=== PATIENT | female | born 1940 | race Caucasian/White ===

== ENCOUNTER → 2016-08-02 | Outpatient (CLI) | payer MEDICARE, OTHER | END | disposition home or self-care (01) | LOC: GMAB 10:11 | PROVIDERS: ATTEND Family Medicine | DX: E03.9 Hypothyroidism, unspecified (principal) ==

== ENCOUNTER → 2016-10-26 | Outpatient (CLI) | payer MEDICARE, OTHER ==
--- NOTE | 2016-10-26 10:22 | RAD ---
EXAM DESCRIPTION: Fingers,Right CLINICAL HISTORY: 76 years Female, PAIN IN RIGHT 4TH DIGIT COMPARISON: None. FINDINGS: Degenerative changes involving the DIP joint of the fourth digit is present with normal bony alignment. Extensive calcific densities overlying the hand between the third and fourth digits at the MCP joints and more proximally and do not clearly represent vascular calcification and suggestive of some form of soft tissue dystrophic calcification. IMPRESSION: Degenerative changes of the DIP joint and dystrophic calcifications over the mid hand of uncertain significance. Electronically signed by: Lan Mcnair MD 10/26/2016 10:21 AM CDT
--- NOTE | 2016-10-26 10:24 | RAD ---
EXAM DESCRIPTION: Wrist,Right 3 Views CLINICAL HISTORY: 76 years, Female, PAIN IN RIGHT HAND COMPARISON: None TECHNIQUE: AP/ lateral/ oblique views of the right wrist. FINDINGS: Right wrist study shows no fracture or dislocation. The carpal bones are normally aligned and mildly osteopenic without fracture or dislocation. Extensive vascular calcification is present and may account for what was described as dystrophic calcifications within the mid hand. No additional abnormalities noted. IMPRESSION: 1. Extensive vascular calcifications throughout the forearm and wrist and likely accounting for the calcification within the hand. 2. Osteopenia and mild degenerative changes of the wrist without fracture. Electronically signed by: Lan Mcnair MD 10/26/2016 10:24 AM CDT
== END | disposition home or self-care (01) ==
LOC: RAD 07:41
PROVIDERS: ATTEND Orthopaedic Surgery
DX: M79.641 Pain in right hand (principal); M79.644 Pain in right finger(s)

== ENCOUNTER → 2016-11-28 | Outpatient (CLI) | payer MEDICARE, OTHER | END | disposition home or self-care (01) | LOC: GMAB 10:28 | PROVIDERS: ATTEND Family Medicine | DX: E03.9 Hypothyroidism, unspecified (principal); N39.0 Urinary tract infection, site not specified ==

== ENCOUNTER → 2016-11-29 | Outpatient (CLI) | payer MEDICARE, OTHER | LOC: RESP 15:56 | PROVIDERS: ATTEND Orthopaedic Surgery | DX: Z01.818 Encounter for other preprocedural examination (principal) ==

== ENCOUNTER 2016-12-14 05:47 | Day surgery (SDC) | payer MEDICARE, OTHER ==
--- NOTE | 2016-12-12 08:45 | HP ---
CHIEF COMPLAINT: Right hand pain and numbness. HISTORY OF PRESENT ILLNESS: Ms. Griffin is a 76-year-old female with a history of clicking and locking at the third and fourth digits with some numbness in the hand. The numbness has been waking her up at night. She has had pain in the palmar aspect of the hand and both these issues have been going on for years. She has attempted bracing, however, it has failed to give her relief. She is requesting surgical intervention. After discussing the risks, benefits and alternatives to that, the patient has given informed consent. PAST SURGICAL HISTORY: 1. Hysterectomy. 2. Cholecystectomy. 3. Trigger finger release. MEDICATIONS: 1. Prilosec. 2. Zocor. 3. Metformin. 4. Zoloft. 5. Glucotrol. 6. Lopressor. 7. Altace. ALLERGIES: NO KNOWN DRUG ALLERGIES. CODE STATUS: Full code. IMMUNIZATIONS: Up to date. SOCIAL HISTORY: The patient does not drink, smoke or use any illicit drugs. FAMILY HISTORY: None pertinent to today's complaint. REVIEW OF SYSTEMS: Negative except as indicated in the History of Present Illness. PHYSICAL EXAMINATION: VITAL SIGNS: Blood pressure 114/57. Pulse 75. Height 5'6". Weight 210. MENTAL STATUS: The patient is awake, alert, and is able to give a good history and participate in the physical. The patient is oriented to person, place and time. SKIN: Normal tone and turgor. MUSCULOSKELETAL: The right hand shows some thenar atrophy and she has positive Phalen's and positive Tinel's. She has positive carpal compression test as well. She does have full range of motion in all the digits, however ,she has palpable clicking and pain at the A1 gabby on the right side. Automation Analyst strength seems to be equivalent to the contralateral side. ASSESSMENT: 1. Triggering at the third and fourth digits. 2. Carpal tunnel syndrome. PLAN: At this point, she has requested surgical intervention. She has been counseled as to risks, benefits and alternatives to operative therapy for carpal tunnel release as well as trigger finger release. We are going to proceed with trigger finger release at the third and fourth digits and carpal tunnel release on the right side. #[id number] [facility]
[2016-12-14] MEDS ORDERED: LACTATED RINGERS 1,000 ML ONE (05:48)
[2016-12-14] MEDS ORDERED: SODIUM CHL 0.9% 100ML MINI-BAG 100 ML IVPB ONE (05:48)
[2016-12-14] MEDS ORDERED: ceFAZolin SODIUM 1 GM VIAL ONE ×2 (05:49)
[2016-12-14] MEDS ORDERED: LIDOCAINE 1% 10 ML VIAL INJ ONE (09:00)
[2016-12-14] MEDS ORDERED: PROPOFOL 200 MG/20 ML VIAL IV ONE (09:00)
[2016-12-14] MEDS ORDERED: BUPIVACAINE 0.25% INJ 30 ML VIAL INJ ONE (09:10)
[2016-12-14] MEDS ORDERED: LIDOCAINE 1% 50 ML VIAL INJ ONE (09:10)
[2016-12-14] MEDS ORDERED: fentaNYL CITRATE INJ 50 MCG/ML AMP ONE (09:50)
[2016-12-14] MEDS: VANCOMYCIN HCL INJ 1,000 MG VIAL IVPB ONE ×2 (10:18→10:43)
[2016-12-14] MEDS: ceFAZolin SODIUM 1 GM VIAL ONE ×2 (10:18→10:43)
[2016-12-14 11:48] VITALS: BP 161/89; TEMP 98.1; O2SAT 95
--- NOTE | 2016-12-15 08:21 | OP ---
DATE OF PROCEDURE: 12/14/16 PREOPERATIVE DIAGNOSIS: 1. Carpal tunnel syndrome. 2. Trigger finger at the third and fourth digits. POSTOPERATIVE DIAGNOSIS: 1. Carpal tunnel syndrome. 2. Trigger finger at the third and fourth digits. PROCEDURE: 1. Carpal tunnel release. 2. Trigger finger release times two. SURGEON: Efrain Perez MD. DIRECTOR CARD: Sharan Soto CST, SA-C. ANESTHESIA: Local with sedation. COMPLICATIONS: None. FINDINGS: 1. Thickening of the transverse carpal ligament. 2. Palpable clicking at the A1 gabby on the third and fourth digits. INDICATION: The patient has a history of palpable clicking with pain at the A1 pulleys at the third and fourth digits in addition to symptoms consistent with carpal tunnel syndrome. Because of all of her symptoms, she has requested operative intervention. After discussing the risks, benefits and alternatives to that, the patient has given informed consent for the above procedures. PROCEDURE: The patient was brought to the Operating Room and placed in the supine position. Sedation was administered and local anesthetic was injected into the operative area under sterile conditions. After the injection of anesthetic, the arm was sterilely prepped and draped. A longitudinal incision was made directly overlying the transverse carpal ligament and blunt dissection was carried down to the ligament. The transverse carpal ligament was sharply transected along its length and a [place] elevator was used to ensure complete release of the ligament. Once release had been confirmed, the wound was thoroughly irrigated and the wound was closed with Nylon suture. Attention was focused on the third digit A1 gabby and a transverse incision was made. Blunt dissection was carried down to the A1 gabby and it was sharply incised along its length. The wound was irrigated and attention was focused on the fourth digit A1 gabby. A transverse incision was made. Blunt dissection was performed and the gabby was identified. The A1 gabby was transected along its course. Following transection of the A1 gabby, the patient was asked to flex and extend the digits vigorously. There was no locking and no clicking notable. Both wounds were again thoroughly irrigated and closed with Nylon suture. A sterile dressings were placed and the patient was taken to the Day Surgery Unit. POSTOPERATIVE INSTRUCTIONS: The patient has been encouraged to do range of motion of the digits and will followup with us in two days. #[id number] [facility]
== END 2016-12-14 11:23 | disposition home or self-care (01) ==
LOC: AMB 05:47
PROVIDERS: ATTEND Orthopaedic Surgery
DX: G56.01 Carpal tunnel syndrome, right upper limb (principal); M65.341 Trigger finger, right ring finger; M65.331 Trigger finger, right middle finger; I10 Essential (primary) hypertension; E11.9 Type 2 diabetes mellitus without complications; I25.10 Atherosclerotic heart disease of native coronary artery without angina pectoris; I25.2 Old myocardial infarction; I48.91 Unspecified atrial fibrillation; Z79.84 Long term (current) use of oral hypoglycemic drugs; Z79.899 Other long term (current) drug therapy
CPT/HCPCS: 01810; 26055; 36416; 64721; 82948; J0690; J3010; J3370; J3490; J7050; J7120

== ENCOUNTER → 2018-10-24 | Outpatient (CLI) | payer MEDICARE, OTHER | LOC: INFRM 10:14 | PROVIDERS: ATTEND Family Medicine | DX: N39.46 Mixed incontinence (principal); F33.2 Major depressive disorder, recurrent severe without psychotic features; Z46.82 Encounter for fitting and adjustment of non-vascular catheter ==

== ENCOUNTER → 2018-11-29 | Outpatient (CLI) | payer MEDICARE, OTHER ==
[2018-11-29 13:41] VITALS: BP 128/76; TEMP 97.6; O2SAT 95
== END ==
LOC: INFRM 13:02
PROVIDERS: ATTEND Family Medicine
DX: N39.0 Urinary tract infection, site not specified (principal)

== ENCOUNTER → 2018-12-27 | Outpatient (CLI) | payer MEDICARE, OTHER | LOC: INFRM 15:27 | PROVIDERS: ATTEND Family Medicine | DX: Z46.6 Encounter for fitting and adjustment of urinary device (principal) ==

== ENCOUNTER → 2019-01-22 | Outpatient (CLI) | payer MEDICARE, OTHER | LOC: LAB.O 14:21 | PROVIDERS: ATTEND Family Medicine | DX: R63.4 Abnormal weight loss (principal); E78.5 Hyperlipidemia, unspecified; E11.9 Type 2 diabetes mellitus without complications; I10 Essential (primary) hypertension ==

== ENCOUNTER → 2019-02-22 | Outpatient (CLI) | payer MEDICARE, OTHER | LOC: YCFC.O 09:52 | PROVIDERS: ATTEND Family Medicine | DX: Z01.818 Encounter for other preprocedural examination (principal); Z86.718 Personal history of other venous thrombosis and embolism ==

== ENCOUNTER 2019-03-16 14:11 | Emergency (ER) | payer MEDICARE, OTHER ==
--- NOTE | 2019-03-16 14:29 | ED.PDOC ---
History of Present Illness - General Chief Complaint: General Time Seen by Provider: 03/16/19 14:23 - History of Present Illness Initial Comments: this is a 78-year-old white female who presents today to the emergency Department with complaints of left lower extremity swelling and discomfort. She states that this started yesterday. She noticed it yesterday morning. She is currently on Coumadinand has been since 2012 when her first DVT was discovered. she has a history ofDiabetes mellitus that is not well-controlled. she also has a history of depression and hypertension. She denies missing any of her medications recently. She denies any recent fever or chills. She does admit to some nausea.she also reported that she had had some recent back pain. She is not having any currently. She denies any chest pains or shortness of breath currently. She does report that she has been told she has a blocked artery in the pastbut no history of stents or bypass surgery. Her son is present with her today and he lives in [facility]. He requests that transferred to [facility] be considered if there is a need for admission. Allergies/Adverse Reactions: Allergies Penicillins Allergy (Verified 03/16/19 14:33) Hives Home Medications: Ambulatory Orders RX: Fenofibrate Micronized [Lofibra] 134 mg PO DAILY@0700 08/09/12 Sertraline HCl [Zoloft] 100 mg PO DAILY@0700 05/30/14 Warfarin Sodium [Coumadin] 5 mg PO DAILY 05/30/14 Glipizide [Glipizide ER] 5 mg PO DAILY 03/16/19 Magnesium [Chelated Magnesium] 100 mg PO DAILY 03/16/19 Metoprolol Tartrate 50 mg PO BID 03/16/19 RX: Gabapentin 600 mg PO TID PRN 03/16/19 RX: Sitagliptin-Metformin HCl [Janumet Xr 50-1000 mg] 1 tablet PO DAILY 03/16/19 Ramipril [Altace] 10 mg PO DAILY 03/16/19 Simvastatin 20 mg PO DAILY 03/16/19 hydrOXYzine HCl [Atarax] 25 mg PO DAILY PRN 03/16/19 Review of Systems - Review of Systems Constitutional: States: no symptoms reported. Denies: chills, diaphoresis, fever, malaise, weakness EENTM: States: no symptoms reported Respiratory: States: no symptoms reported. Denies: cough, orthopnea, short of breath, wheezing Cardiology: States: no symptoms reported, edema. Denies: chest pain, palpitations, syncope Gastrointestinal/Abdominal: States: nausea. Denies: abdominal pain, constipation, diarrhea, vomiting Genitourinary: States: no symptoms reported Musculoskeletal: States: back pain, other - left lower leg pain and swelling Skin: States: rash, other - resolving rash on the. Denies: change in color Neurological: States: no symptoms reported Endocrine: Denies: other Hematologic/Lymphatic: States: blood clots. Denies: easy bleeding, easy bruising All other Systems: Reviewed and Negative Past Medical History (General) - Patient Medical History Hx Cardiac Disorders: Yes Hx Congestive Heart Failure: No Hx Pacemaker: No Hx Hypertension: Yes Hx Diabetes: Yes Hx MRSA: No - Social History Hx Alcohol Use: No Hx Substance Use: No Hx Physical Abuse: No Hx Emotional Abuse: No Family Medical History - Family History Mother Family History: No Known Living Status: Physical Exam - Physical Exam General Appearance: Alert, No apparent distress Ears, Nose, Throat: hearing grossly normal, normal ENT inspection, normal pharynx Neck: non-tender, full range of motion, supple, normal inspection Respiratory: chest non-tender, lungs clear, normal breath sounds, no respiratory distress, no accessory muscle use, respiratory distress Cardiovascular/Chest: normal peripheral pulses, regular rate, rhythm, no gallop, no JVD, systolic murmur - best heard on the right sternal border 2/6 in intensity Peripheral Pulses: radial,right: 2+, radial,left: 2+, dorsalis pedis,right: 1+, dorsalis pedis,left: 1+, posterior tibialis,right: 1+, posterior tibialis,left: 1+ Gastrointestinal/Abdominal: normal bowel sounds, non tender, soft, no organomega ly, no pulsatile mass Rectal Exam: deferred Back Exam: normal inspection, no CVA tenderness Extremity: calf tenderness, pedal edema, swelling, other - the left lower extremity reveals evidence of edema and asymmetry in comparison to the right Neurologic: sign wirer II-XII nml as tested, no motor/sensory deficits, alert, normal mood/affect, oriented x 3 Skin Exam: normal color, warm/dry Lymphatic: no adenopathy Progress - Progress Progress: 03/16/19 15:16 MDM: Patient presents today with left lower extremity swelling with known history of DVT of the left lower extremity. Currently on Coumadin. Complains of discomfort there and acute swelling. She lives alone and her son lives in [facility]. She will be evaluated for acute DVT. Patient noted to not have chronic swelling of the left lower extremity. Her left lower extremity at the calf measures 45 cm wall the right measures 37 cm. We'll get a d-dimer. We do not have ultrasound available to us today. We will also evaluate cardiac enzymes since patient has had some occasional back pain. Her urine will also be checked. 03/16/19 15:19 EKG reveals a normal sinus rhythm with a rate of 65 there's a normal axis noted there is no evidence of ST elevations present. No peaked T waves. Slit T waves are noted in aVR and aVL as well as V1 and V2 03/16/19 16:01 patient is not therapeutic on her Coumadin. INR is 1.0. Her d-dimer is markedly elevated. Ultrasound is not available at this facility on the weekend. [facility] We will go ahead and medicate with Lovenox presently. 03/16/19 16:10 the patient and her son were briefed about the diagnosis and plans to attempt transfer to [facility] in [facility]. - Results/Orders Results/Orders: FINDINGS: Limitations: None. Lungs: Chronic obstructive changes and interstitial and parenchymal scarring present. No consolidation. Pleural space: Unremarkable. No pneumothorax. Heart: Enlarged cardiac shadow unchanged. Mediastinum: Mediastinal contour within normal limits and unchanged. Bones/joints: Unremarkable. IMPRESSION: Chronic changes as above. No acute disease. Electronically signed by: Madelyn Person MD 03/16/2019 3:14 PM [employer] 03/16/19 14:50 Sodium Chloride 0.9% 1000ML [Ns 1000 ml] 1,000 ml IVS .QD 03/16/19 15:00 EKG STAT 03/16/19 15:15 URINALYSIS Stat 03/16/19 15:20 D-DIMER,QUANTITATIVE Stat Laboratory Results - last 24 hr 03/16/19 03/16/19 03/16/19 15:20 15:20 15:20 WBC 12.1 H RBC 4.78 Hgb 13.6 Hct 41.8 MCV 87.4 MCH 28.4 MCHC 32.5 L RDW 14.2 Plt Count 141 MPV 10.3 Absolute Neuts (auto) 10.30 H Absolute Lymphs (auto) 0.70 L Absolute Monos (auto) 0.90 H Absolute Eos (auto) 0.10 Absolute Basos (auto) 0.10 Neutrophils % 85.2 H Lymphocytes % 6.1 L Monocytes % 7.6 Eosinophils % 0.5 L Basophils % 0.6 PT INR PTT (SP) Sodium 136 Potassium 4.1 Chloride 103 Carbon Dioxide 20 L Anion Gap 17.1 BUN 18 Creatinine 0.90 BUN/Creatinine Ratio 20.0 Random Glucose 248 H Serum Osmolality 282.2 Lactic Acid Calcium 9.5 Total Bilirubin 1.1 H AST 19 ALT 15 Alkaline Phosphatase 46 Troponin I < 0.02 Serum Total Protein 7.2 Albumin 3.7 Globulin 3.5 Albumin/Globulin Ratio 1.1 03/16/19 03/16/19 15:20 15:20 WBC RBC Hgb Hct MCV MCH MCHC RDW Plt Count MPV Absolute Neuts (auto) Absolute Lymphs (auto) Absolute Monos (auto) Absolute Eos (auto) Absolute Basos (auto) Neutrophils % Lymphocytes % Monocytes % Eosinophils % Basophils % PT 10.3 INR 1.03 PTT (SP) 23.9 Sodium Potassium Chloride Carbon Dioxide Anion Gap BUN Creatinine BUN/Creatinine Ratio Random Glucose Serum Osmolality Lactic Acid 2.4 H* Calcium Total Bilirubin AST ALT Alkaline Phosphatase Troponin I Serum Total Protein Albumin Globulin Albumin/Globulin Ratio d-dimer is 26.32 with a normal upper limit of 0.49 - EKG/XRAY/CT EKG: Sinus, no ST T wave changes Departure - Departure Clinical Impression: Pain and swelling of left lower extremity, Subtherapeutic anticoagulation, Elevated d-dimer Time of Disposition: 16:18 Disposition: Transfer to Hospital Condition: Fair Departure Forms: ED Discharge - Pt. Copy, Patient Portal Self Enrollment Referrals: Iban Lawrence MD [Primary Care Provider] - 1-2 Weeks Home Medications: Ambulatory Orders RX: Fenofibrate Micronized [Lofibra] 134 mg PO DAILY@0700 08/09/12 Sertraline HCl [Zoloft] 100 mg PO DAILY@0700 05/30/14 Warfarin Sodium [Coumadin] 5 mg PO DAILY 05/30/14 Glipizide [Glipizide ER] 5 mg PO DAILY 03/16/19 Magnesium [Chelated Magnesium] 100 mg PO DAILY 03/16/19 Metoprolol Tartrate 50 mg PO BID 03/16/19 RX: Gabapentin 600 mg PO TID PRN 03/16/19 RX: Sitagliptin-Metformin HCl [Janumet Xr 50-1000 mg] 1 tablet PO DAILY 03/16/19 Ramipril [Altace] 10 mg PO DAILY 03/16/19 Simvastatin 20 mg PO DAILY 03/16/19 hydrOXYzine HCl [Atarax] 25 mg PO DAILY PRN 03/16/19 Transfer to Outside Facility - Transfer Information Decision to Transfer Date: 03/16/19 Decision to Transfer Time: 16:15 Reason for Transfer: [place] and admission Accepting Provider:: Dr. Weber Accepting Facility: [place]
[2019-03-16] MEDS ORDERED: SODIUM CHLORIDE 0.9% 1000ML 1,000 ML IVS PRN (14:50)
--- NOTE | 2019-03-16 15:15 | RAD ---
EXAM: XR Chest, 1 View CLINICAL HISTORY: back pain TECHNIQUE: Frontal view of the chest. COMPARISON: 08/10/2012. FINDINGS: Limitations: None. Lungs: Chronic obstructive changes and interstitial and parenchymal scarring present. No consolidation. Pleural space: Unremarkable. No pneumothorax. Heart: Enlarged cardiac shadow unchanged. Mediastinum: Mediastinal contour within normal limits and unchanged. Bones/joints: Unremarkable. IMPRESSION: Chronic changes as above. No acute disease. Electronically signed by: Madelyn Person MD 03/16/2019 3:14 PM [facility]
[2019-03-16] MEDS ORDERED: ENOXAPARIN SODIUM 80 MG/0.8 ML SYG SUBCU ONE (16:22)
[2019-03-16 16:35] VITALS: O2SAT 98
[2019-03-16 16:43] VITALS: BP 121/68; TEMP 97.6
== END 2019-03-16 16:45 | disposition short-term general hospital (02) ==
LOC: ER 14:11
DX: M79.662 Pain in left lower leg (principal); M79.89 Other specified soft tissue disorders; R79.1 Abnormal coagulation profile; R79.89 Other specified abnormal findings of blood chemistry; R60.0 Localized edema; M54.9 Dorsalgia, unspecified; R11.0 Nausea; I51.9 Heart disease, unspecified; I10 Essential (primary) hypertension; E11.9 Type 2 diabetes mellitus without complications; F32.9 Major depressive disorder, single episode, unspecified; Z79.01 Long term (current) use of anticoagulants; Z79.899 Other long term (current) drug therapy; Z79.84 Long term (current) use of oral hypoglycemic drugs; Z88.0 Allergy status to penicillin
CPT/HCPCS: 36415; 71045; 80053; 81001; 83605; 84484; 85025; 85379; 85610; 85730; 87077; 87086; 87186; 93005; J1650; J7030

== ENCOUNTER → 2019-03-20 | Outpatient (CLI) | payer MEDICARE, OTHER | LOC: YCFC.O 12:40 | PROVIDERS: ATTEND Family Medicine | DX: I82.409 Acute embolism and thrombosis of unspecified deep veins of unspecified lower extremity (principal) ==

== ENCOUNTER → 2019-05-07 | Outpatient (CLI) | payer MEDICARE, OTHER | LOC: LAB.O 15:22 | PROVIDERS: ATTEND Family Medicine | DX: E11.9 Type 2 diabetes mellitus without complications (principal) ==

== ENCOUNTER → 2019-09-10 | Outpatient (CLI) | payer MEDICARE, OTHER | LOC: YCFC.O 10:18 | PROVIDERS: ATTEND Family Medicine | DX: E11.9 Type 2 diabetes mellitus without complications (principal) ==

== ENCOUNTER → 2019-12-10 | Outpatient (CLI) | payer MEDICARE, OTHER | LOC: YCFC.O 11:45 | PROVIDERS: ATTEND Family Medicine | DX: E11.9 Type 2 diabetes mellitus without complications (principal); Z79.899 Other long term (current) drug therapy; Z86.718 Personal history of other venous thrombosis and embolism ==

== ENCOUNTER → 2020-02-27 | Outpatient (CLI) | payer MEDICARE, OTHER | LOC: ECHO 11:00 | PROVIDERS: ATTEND Family Medicine | DX: R01.1 Cardiac murmur, unspecified (principal); I77.819 Aortic ectasia, unspecified site; I34.0 Nonrheumatic mitral (valve) insufficiency; I36.1 Nonrheumatic tricuspid (valve) insufficiency ==

== ENCOUNTER → 2020-04-14 | Outpatient (CLI) | payer MEDICARE, OTHER ==
--- NOTE | 2020-04-15 11:44 | RAD ---
EXAM DESCRIPTION: Hip,Left 2 Views CLINICAL HISTORY: HIP PAIN COMPARISON: None. TECHNIQUE: 2 views left FINDINGS: Minimal acetabular osteophyte formation is observed. Osteopenia is noted. No fracture is detected. Dense calcification is observed in the iliac and femoral vessels. No pelvic fracture is detected. IMPRESSION: Osteopenia and minimal degenerative changes observed. No fracturing is detected. Electronically signed by: Trey Vela MD 04/15/2020 11:42 AM [facility]
--- NOTE | 2020-04-15 11:46 | RAD ---
EXAM DESCRIPTION: Lumbar Spine 3 Views CLINICAL HISTORY: LOW BACK PAIN COMPARISON: None Available. TECHNIQUE: AP/lateral/coned-down lateral FINDINGS: Mild convexity lumbar spine to the left is observed. Marked loss of disc height is observed at the L2-3 level. Vacuum disc phenomena is observed at this level. Anterior osteophyte and mild loss of disc height is observed above this level in the upper lumbar lower thoracic spine. Diffuse osteopenia is observed. Minimal anterior subluxation of L4 on L5 is observed. There is mild loss of disc height at the L5-S1 level. Facet joint arthritis is observed most pronounced at the L5-S1 level. Calcific atherosclerotic changes observed in the abdominal aorta without evidence of aneurysmal dilatation. Surgical clips are seen in the right upper quadrant. IMPRESSION: Diffuse degenerative changes and osteopenia are observed. The findings are most pronounced at the L2-3 level. Electronically signed by: Trey Vela MD 04/15/2020 11:44 AM [facility]
== END ==
LOC: YCFC.O 14:31
PROVIDERS: ATTEND Family Medicine
DX: M47.896 Other spondylosis, lumbar region (principal); M16.12 Unilateral primary osteoarthritis, left hip; M85.9 Disorder of bone density and structure, unspecified; E11.9 Type 2 diabetes mellitus without complications; E78.5 Hyperlipidemia, unspecified; I10 Essential (primary) hypertension; Z86.718 Personal history of other venous thrombosis and embolism